=== PATIENT | female | born 1960 | race Caucasian/White ===

== ENCOUNTER 2021-02-06 08:04 | Outpatient (REF) | payer MEDICAID, SELFPAY ==
--- NOTE | ~2021-02-06 | MM_ITS ---
EXAMINATION: MM SCREENING DIGITAL BREAST TOMOSYNTHESIS, BILATERAL CLINICAL INFORMATION: Screening. Asymptomatic. No prior breast imaging. Age 60. Family history breast cancer, maternal grandmother. The lifetime risk of breast cancer based on the Tyrer-Cuzick Model is 8%. COMPARISON: None (current study represents initial baseline exam). TECHNIQUE: Digital breast tomosynthesis is performed in both the craniocaudal and mediolateral oblique views along with computer-aided detection (CAD). Synthesized 2D images are generated from the tomosynthesis. FINDINGS: The breasts are almost entirely fatty (ACR BI-RADS breast composition Category a). Background stromal markings are normal. There are no significant masses, abnormal calcifications, or other abnormalities. No architectural abnormality. The axilla and skin contours are unremarkable. MM/MM tomosynthesis screening BI IMPRESSION: No mammographic evidence of malignancy. ASSESSMENT: BI-RADS 1: Negative RECOMMENDATION: Routine annual mammography screening. This patient's information was entered into a reminder system with a target due date for their next mammogram.
== END 2021-02-06 08:05 | disposition home or self-care (01) ==
LOC: HO.MAMMO 08:04
PROVIDERS: PCP Internal Medicine; Visit Provider Internal Medicine
DX: Z12.31 Encounter for screening mammogram for malignant neoplasm of breast (principal)
CPT/HCPCS: 77063; 77067

== ENCOUNTER 2022-12-17 11:46 | Emergency (ER) | payer MEDICAID, SELFPAY ==
--- NOTE | ~2022-12-17 | CT_ITS ---
EXAMINATION: CT ABDOMEN AND PELVIS WITHOUT CONTRAST CLINICAL INFORMATION: Left flank pain COMPARISON: Previous CT of the abdomen and pelvis October 2015, abdominal ultrasound March 2017 and MRI April 2017 TECHNIQUE: Multidetector volumetric imaging was performed from the superior aspect of the liver through the pubic symphysis. Sagittal and coronal reformatted images were obtained on the technologist's workstation. This CT examination was performed using dose optimization techniques as appropriate, variously including the following: *Automated exposure control *Adjustment of mA and/or kV according to patient size (this includes techniques or standardized protocols for targeted exams where dose is matched to indication/reason for exam; i.e. extremities or head) *Use of iterative reconstruction technique DLP: 602 mGy-cm FINDINGS: LUNG BASES: The visualized lung bases are unremarkable. LIVER, GALLBLADDER, AND BILIARY TREE: Cirrhotic changes. No focal hepatic lesion or biliary ductal dilatation is present. The gallbladder is unremarkable with no evidence of radiopaque gallstones, gallbladder wall thickening, or obvious pericholecystic inflammatory changes. PANCREAS: Unremarkable. SPLEEN: Unremarkable. ADRENAL GLANDS: Unremarkable. KIDNEYS AND URETERS: The kidneys are normal in size, shape, and attenuation. Small bilateral renal stones. 3 cm left renal cyst. No imaging follow-up recommended. No hydronephrosis. No ureteral dilatation or ureteral stone. BLADDER: Unremarkable. GASTROINTESTINAL TRACT: The small and large bowel are unremarkable. The appendix is unremarkable. ABDOMINAL WALL: No significant hernia is appreciated. LYMPH NODES: Normal. VASCULAR: Unremarkable. PELVIC VISCERA: Unremarkable. OSSEOUS STRUCTURES: Degenerative changes of the spine. CT/CT abdomen pelvis wo IV con IMPRESSION: Small bilateral nonobstructing renal stones. Cirrhotic-appearing liver. Fleischner guidelines were followed.
[2022-12-17 12:10] VITALS: BP 146/69; PULSE 52; RESP 16; TEMP 36.3; O2SAT 100; BMI 30.7
--- NOTE | 2022-12-17 12:13 | ED_ITS ---
HPI - General Adult General Chief complaint: Urogenital-Female Stated complaint: ? kidney stones Time Seen by Provider: 12/17/22 14:28 Source: patient and family (Son, Memo) Mode of arrival: ambulatory Limitations: language barrier (Patient's 1st language is Guinean, she does speak some Maori, her sonMemo was used as a tool grinder set up operator gear as per the patient's request) History of Present Illness HPI narrative: 62-year-old female who presents emergency department for evaluation of left flank pain, frequency, urgency, dysuria and hematuria. Patient states she has had symptoms for 2 days . She states that her pain in her left flank feels very similar to when she had a kidney stone but less severe. Patient has had symptoms for 3 days she denied fever, chills. She did have nausea and 2 episodes of vomiting. Related Data Previous Rx's Medication Instructions Recorded cefuroxime axetil 250 mg tablet 250 mg PO Q12H 7 days #14 tabs 12/17/22 ondansetron 4 mg disintegrating 4 mg PO Q6-8H PRN nausea and 12/17/22 tablet vomiting #14 tabs phenazopyridine 200 mg tablet 200 mg PO TID PRN Burning with 12/17/22 (Pyridium) urination 3 days #9 tabs Allergies Allergy/AdvReac Type Severity Reaction Status Date / Time ibuprofen [IBUPROFEN] Allergy Intermediate PANIC Verified 12/17/22 12:10 Review of Systems Review of Systems: Yes all other systems are reviewed and are negative FORMERLY [facility], [facility] Past Medical History FOR[facility]LY [facility] Narrative: Past medical history: Hepatitis C with cirrhosis of the liver-treated in [place]. Hypothyroidism. Kidney stones. Social history: She denies tobacco, alcohol and drug use. Social History Social History Alcohol intake: never Smoked in Last 30 Days: No Use of substances other than those prescribed or required for medical reasons: No Advance Directives: No Advance Directives Information Provided: Yes Physical Exam ED Vital Signs: Vital Signs - 24 hr 12/17/22 12:10 12/17/22 15:34 Temperature 97.4 F 98.1 F Pulse Rate 52 56 Respiratory Rate 16 16 Blood Pressure 146/69 H 116/61 Pulse Oximetry 100 97 Oxygen Delivery Method Room Air Room Air BMI result Body Mass Index 30.7 Vital signs revealed an elevated blood pressure of 146/69 otherwise unremarkable Exam: General: Awake, alert in no distress Head: Normocephalic, atraumatic EENT: PERRL, Lids normal, sclera normal, conjunctiva normal, nose normal , ears normal, throat without erythema or exudates Neck: Supple, no adenopathy, trachea midline and nontender Lung: breath sounds symmetric, no wheezing, rales or rhonchi Chest: symmetric movement, nontender Heart: regular rate and rhythm, normal S1, S2 no murmurs or rubs Abdomen: Patient has moderate suprapubic tenderness, normoactive bowel sounds, no rebound, no voluntary or involuntary guarding Back: no vertebral tenderness, no right-sided CVA tenderness, moderate left- sided CVA tenderness Extremities: no deformities, moves all extremities symmetrically Skin: no rashes, no lesion, normal color and warmth Neuro: Awake, alert, oriented, normal speech, cranial nerves intact, moves all extremities symmetrically Psych: Pleasant, cooperative Course Course Course Narrative: 62-year-old female presents for evaluation of left flank pain. Plan for labs, UA, CT scan the abdomen pelvis to evaluate for obstructive uropathy Medical Decision Making Medical Decision Making MDM Narrative: 62-year-old female who presents emergency department for evaluation of left- sided flank pain, frequency, urgency, dysuria and hematuria x3 days. She had associated nausea and vomiting with no fever or chills. Patient has a history of kidney stones. Vital signs revealed elevated blood pressure otherwise unremarkable. Physical examination did reveal suprapubic tenderness as well as left-sided CVA tenderness. I ordered the following evaluation of the patient CBC, BMP, urinalysis, CT scan abdomen pelvis without IV contrast. 1643: Patient's laboratory revealed mild anemia, urinalysis was positive for blood and rbc's and microscopic revealed greater than [address] W[address] with no bacteria CT scan revealed bilateral renal stones but no ureteral stones. Given the patient's symptoms and her left CVA tenderness, I suspect that she has left pyelonephritis despite not having any bacteria in her urine. Patient was treated with cefuroxime 250 mg orally and Pyridium 200 mg orally. She is given prescriptions for cefuroxime 250 mg q.12 hours for 7 days, Pyridium 200 mg q.6 hours as needed for pain x3 days. She was advised to take ibuprofen 40 mg every 6 hours as needed for pain. She was given printed and verbal instructions and discharged home. Differential Diagnosis Differential Diagnoses: The differential diagnosis associated with the presentation includes Differential diagnosis includes was not limited to kidney stone, ureteral stone, bladder stone, urinary tract infection, pyelonephritis, renal colic, malignancy Admission/Observation Consideration of admission/observation: Escalation of care including admission/observation considered Lab Data MDM Lab Attestation statement: I reviewed the patient's lab results. My interpretation patient's laboratory evaluation is as follows: Mild anemia with an H&H of 11 and 35.4. Normal kidney function. Urinalysis revealed 3+ blood 3+ leukocyte esterase. Microscopic revealed greater than 50 WBCs,, 6-10 RBCs, no bacteria 12/17/22 12:44 12/17/22 12:44 Labs: Lab Results 12/17/22 12/17/22 12/17/22 Range/Units 12:44 12:44 12:44 WBC 7.9 (4.8-10.8) X10*3/uL RBC 3.95 L (4.20-5.50) X10*6/uL Hgb 11.7 L (12.0-16.0) g/dl Hct 35.4 L (37.0-47.0) % MCV 89.6 (80.0-98.0) fL MCH 29.6 (27.0-33.0) pg MCHC 33.1 (31.0-35.0) g/dl RDW 12.4 (11.0-16.0) % Plt Count 152 L (160-400) X10*3/uL MPV 10.1 (9.4-12.3) fL Immature Gran % (Auto) 0.4 (0.0-0.4) % Neut % (Auto) 66.6 (45-73) % Lymph % (Auto) 21.0 (20-40) % [place] % (Auto) 9.3 (2-11) % Eos % (Auto) 2.3 (0-4) % Baso % (Auto) 0.4 (0-2) % Lymph # (Auto) 1.7 (1.2-4.9) X10*3/uL [place] # (Auto) 0.7 (0.1-1.2) X10*3/uL Eos # (Auto) 0.2 (0.0-0.4) X10*3/uL Baso # (Auto) 0.0 (0.0-0.2) X10*3/uL Abs Immat Gran (auto) 0.03 (0.00-0.03) X10*3/uL Absolute Neuts (auto) 5.2 (2.0-8.3) x10*3/uL Absolute Nucleated RBC 0.000 (0.0-0.012) X10*3/uL Nucleated RBC % (auto) 0.0 (0.0-0.2) /100WBC Sodium 142 (135-145) mmol/L Potassium 4.2 (3.3-5.1) mmol/L Chloride 107 (96-108) mmol/L Carbon Dioxide 27 (22-29) mmol/L Anion Gap 12 (12-20) BUN 11 (9-16) mg/dL Creatinine 0.62 (0.5-1.4) mg/dL Estim Creat Clear Calc 106.7 Estimated GFR > 60 Random Glucose 92 (60-115) mg/dL Calcium 9.5 (8.4-10.2) mg/dL Urine Color Yellow Urine Appearance Clear Urine pH 7.0 (5.0-9.0) Ur Specific [place] <= 1.005 (1.005-1.025) Urine Protein 30 (1+) H (Neg-Trace) mg/dL Urine Glucose (UA) Negative (Negative) mg/dL Urine Ketones Negative (Negative) mg/dL Urine Blood Large (3+) H (Negative) Urine Nitrite Negative (Negative) Ur Leukocyte Esterase Large (3+) H (Negative) Urine RBC 6-10 H (0-2) /HPF Urine WBC >50 H (0-5) /HPF Ur Squamous Epith Cells 0-2 (0-2) /HPF Urine Bacteria None Seen (None Seen) Hyaline Casts 0-2 (0-2) /LPF Radiology Impression Discussion of test interpretation with radiology: I have reviewed the radiologist's reading. Radiologist Impression: CT abdomen pelvis wo IV con IMPRESSION: Small bilateral nonobstructing renal stones. Cirrhotic-appearing liver. Fleischner guidelines were followed. Dictated By:Vivian Toledo MD Discharge Plan Discharge Clinical Impression: Pyelonephritis of left kidney Hematuria Qualifiers: Hematuria type: gross Qualified Code(s): R31.0 - Gross hematuria Patient Disposition: Home, Self-Care Instructions: Kidney Infection (ED) Additional Instructions: Your blood work was unremarkable. Your CT scan of the abdomen pelvis without IV contrast revealed small kidney stone in both kidneys by no stones in the ureters (the tube that connects the kidneys to the bladder). On your exam you did have pain over your left kidney. Your urine is positive for red blood cells and white blood cell suggesting that you have a urine infection of the left kidney. Take cefuroxime 250 mg pills 1 pill every 12 hours for 12 days. Take Pyridium (phenazopyridine) 200 mg every 6 hours as needed for pain with urinating. Take ibuprofen 200 mg pills, 2 pills every 6 hours as needed for pain or fever. Take Zofran ODT 4 mg pills, 1 pill dissolved in your mouth every 8 hours as needed for nausea and vomiting. Follow-up with your doctor in 2 days. Please return to the emergency department if your symptoms get worse or if you develop any symptoms that are concerning to you. Prescriptions: New phenazopyridine [Pyridium] 200 mg tablet 200 mg PO TID PRN (Reason: Burning with urination) 3 Days Qty: 9 0RF cefuroxime axetil 250 mg tablet 250 mg PO Q12H 7 Days Qty: 14 0RF ondansetron 4 mg tablet,disintegrating 4 mg PO Q6-8H PRN (Reason: nausea and vomiting) Qty: 14 0RF
[2022-12-17 12:51] LABS: MANUAL DIFF FLAG NO
[2022-12-17 12:52] LABS: Basophils Percent Auto 0.4 % (0-2); Eosinophils Absolute Auto 0.2 X10*3/uL (0.0-0.4); Eosinophils Percent Auto 2.3 % (0-4); Hematocrit 35.4 % (37.0-47.0); Hemoglobin 11.7 g/dl (12.0-16.0); Imm Gran Abs Auto 0.03 X10*3/uL (0.00-0.03); Imm Gran Pct Auto 0.4 % (0.0-0.4); Lymphocytes Absolute Auto 1.7 X10*3/uL (1.2-4.9); Mean Corpuscular HGB Conc 33.1 g/dl (31.0-35.0); Mean Corpuscular Hemoglobin 29.6 pg (27.0-33.0); Mean Corpuscular Volume 89.6 fL (80.0-98.0); Mean Platelet Volume 10.1 fL (9.4-12.3); Monocytes Absolute Auto 0.7 X10*3/uL (0.1-1.2); Monocytes Percent Auto 9.3 % (2-11); Neutrophils Absolute Auto 5.2 x10*3/uL (2.0-8.3); Neutrophils Percent Auto 66.6 % (45-73); Platelet Count 152 X10*3/uL (160-400); Red Blood Count 3.95 X10*6/uL (4.20-5.50); Red Cell Distribution Width 12.4 % (11.0-16.0); White Blood Count 7.9 X10*3/uL (4.8-10.8)
[2022-12-17 13:00] LABS: Appearance Urine Clear; Color Urine Yellow; Glucose Urine UA Negative (Negative); Leukocyte Esterase Urine Large (3+) (Negative); Nitrite Urine Negative (Negative); Specific Gravity - Urine <= 1.005 (1.005-1.025); UMIC TRIGGER UACC YES; Urine Blood Large (3+) (Negative); Urine Ketones Negative (Negative); Urine Protein 30 (1+) mg/dL (Neg-Trace)
[2022-12-17 13:02] LABS: Bacteria Urine None Seen (None Seen); Hyaline Casts Urine 0-2 /LPF (0-2); Squamous Epithelial Cell Urine 0-2 /HPF (0-2); UACC Culture Trigger YES; WBC Urine >50 /HPF (0-5)
[2022-12-17 13:09] LABS: Anion Gap 12 (12-20); Blood Urea Nitrogen 11 mg/dL (9-16); Calcium 9.5 mg/dL (8.4-10.2); Carbon Dioxide 27 mmol/L (22-29); Chloride 107 mmol/L (96-108); Creatinine Clr Calc Pharmacy 106.7; Estimated Glomerular Filt Rate > 60; Glucose Random 92 mg/dL (60-115); Potassium 4.2 mmol/L (3.3-5.1); Sodium 142 mmol/L (135-145)
[2022-12-17 15:34] VITALS: BP 116/61; PULSE 56; RESP 16; TEMP 36.7; O2SAT 97
--- NOTE | 2022-12-17 15:38 | PC.NURSE ---
pt a&ox3. respirations even and unlabored. pt reporting blood in urine since yesterday morning. pt has hx of stones. pt reporting left sided flank pain and bladder fullness. pt denies n/v and chest pain. vss.
[2022-12-17] MEDS: Phenazopyridine HCL 200 MG TABLET PO (16:38)
--- NOTE | 2022-12-17 16:41 | PC.NURSE ---
pt medicated per MAR.
== END 2022-12-17 16:44 | disposition home or self-care (01) ==
PROVIDERS: Physician Assistant; Emergency Provider Emergency Medicine Emergency Medical Services
DX: N12 Tubulo-interstitial nephritis, not specified as acute or chronic (principal); R31.0 Gross hematuria; R10.9 Unspecified abdominal pain; R30.0 Dysuria; R35.0 Frequency of micturition
CPT/HCPCS: 36415; 74176; 80048; 81001; 85025; 87086; 99284

== ENCOUNTER 2023-07-18 09:30 | Outpatient (REF) | payer MEDICAID, SELFPAY ==
[2023-07-18 14:13] LABS: MANUAL DIFF FLAG NO
[2023-07-18 14:14] LABS: Basophils Percent Auto 0.7 % (0-2); Eosinophils Absolute Auto 0.2 X10*3/uL (0.0-0.4); Eosinophils Percent Auto 3.7 % (0-4); Hematocrit 38.2 % (37.0-47.0); Hemoglobin 12.7 g/dl (12.0-16.0); Imm Gran Abs Auto 0.01 X10*3/uL (0.00-0.03); Imm Gran Pct Auto 0.2 % (0.0-0.4); Lymphocytes Absolute Auto 1.4 X10*3/uL (1.2-4.9); Lymphocytes Percent Auto 32.4 % (20-40); Mean Corpuscular HGB Conc 33.2 g/dl (31.0-35.0); Mean Corpuscular Hemoglobin 30.4 pg (27.0-33.0); Mean Corpuscular Volume 91.4 fL (80.0-98.0); Monocytes Absolute Auto 0.5 X10*3/uL (0.1-1.2); Monocytes Percent Auto 10.3 % (2-11); Neutrophils Absolute Auto 2.3 x10*3/uL (2.0-8.3); Neutrophils Percent Auto 52.7 % (45-73); Platelet Count 151 X10*3/uL (160-400); Red Blood Count 4.18 X10*6/uL (4.20-5.50); White Blood Count 4.4 X10*3/uL (4.8-10.8)
[2023-07-18 14:59] LABS: Alanine Aminotransferase 19 U/L (0-31); Albumin Level 4.4 g/dL (3.5-5.0); Alkaline Phosphatase 59 U/L (39-117); Anion Gap 11 (12-20); Aspartate Amino Transferase 21 U/L (5-31); Bilirubin Total 0.5 mg/dL (0.0-1.0); Blood Urea Nitrogen 19 mg/dL (9-16); Calcium 9.5 mg/dL (8.4-10.2); Carbon Dioxide 29 mmol/L (22-29); Chloride 106 mmol/L (96-108); Cholesterol 164 mg/dL (<200); Estimated Glomerular Filt Rate > 60; Glucose Random 76 mg/dL (60-115); HDL Cholesterol 71 mg/dL (>40); LDL Cholesterol Calculated 79 mg/dL (<100); Potassium 4.6 mmol/L (3.3-5.1); Sodium 141 mmol/L (135-145); Total Protein 7.9 g/dL (6.5-8.0); Triglycerides 74 mg/dL (<150)
[2023-07-18 15:45] LABS: Free T4 (Free Thyroxine) 1.62 ng/dL (0.71-1.85)
== END 2023-07-18 09:31 | disposition home or self-care (01) ==
LOC: HO.CHCLDS 09:30
PROVIDERS: Visit Provider Internal Medicine
DX: E03.9 Hypothyroidism, unspecified (principal); I10 Essential (primary) hypertension
CPT/HCPCS: 36415; 80053; 80061; 84439; 84443; 85025

== ENCOUNTER 2024-02-24 10:12 | Outpatient (REF) | payer MEDICAID, SELFPAY ==
[2024-02-24 11:55] LABS: Alanine Aminotransferase 20 U/L (0-31); Albumin Level 4.2 g/dL (3.5-5.0); Alkaline Phosphatase 58 U/L (39-117); Anion Gap 11 (12-20); Aspartate Amino Transferase 22 U/L (5-31); Bilirubin Total 0.8 mg/dL (0.0-1.0); Blood Urea Nitrogen 12 mg/dL (9-16); Calcium 9.2 mg/dL (8.4-10.2); Carbon Dioxide 28 mmol/L (22-29); Chloride 104 mmol/L (96-108); Cholesterol 141 mg/dL (<200); Estimated Glomerular Filt Rate > 60; Glucose Random 100 mg/dL (60-115); HDL Cholesterol 66 mg/dL (>40); LDL Cholesterol Calculated 65 mg/dL (<100); Potassium 4.4 mmol/L (3.3-5.1); Sodium 139 mmol/L (135-145); Total Protein 7.4 g/dL (6.5-8.0); Triglycerides 54 mg/dL (<150)
[2024-02-24 12:13] LABS: TSH reflex Free T4 1.54 uIU/mL (0.32-4.0); Vitamin D 25-OH Total 66.8 ng/mL (>30)
== END 2024-02-24 10:13 | disposition home or self-care (01) ==
LOC: HO.LAB 10:12
PROVIDERS: PCP Internal Medicine; Visit Provider Internal Medicine
DX: I10 Essential (primary) hypertension (principal); E55.9 Vitamin D deficiency, unspecified
CPT/HCPCS: 36415; 80053; 80061; 82306; 84443

== ENCOUNTER 2024-11-14 09:31 | Outpatient (REF) | payer MEDICAID, SELFPAY ==
--- OUTSIDE RECORDS SUMMARY | 2024-11-14 09:59 | XMS_ITS | Encounter Summary ---
Author Organization [employer] Address [address] [facility] [address] [place] [address] Care Team Providers Care Cooler Man Name Role Phone Nithin Duckworth MD Primary Care Prov ider Reason for Visit * Reason Comments Med Refill Encounter Details Date Type Department Care Team (Late st Contact Info) Description 11/14/2024 Refill [facility] [address] [place] [address] Nithin Duckworth MD [address] [place], [place] [phone] Social History Tobacco Use Types Packs/Day Years Used Date Smoking Tobacco: Never Smokeless Tobacco: Never Alcohol Use Standard Drinks/Week Comments Never 0 (1 standard drink = 0.6 oz pur e alcohol) Depression Answer Date Recorded Patient Health Questionnaire-9 Score 0 11/14/2024 Patient Health Questionnaire-9 Score 0 11/14/2024 Last PHQ-9: Questionnaire Data Not on file 0 11/14/2024 Housing Stability Answer Date Recorded What is your housing situation today? I have chrisitna pate 07/18/[address] you li ve. Do you have problems with any of the following? None of the above 07/18/2023 Food Insecurity Answer Date Recorded Within the past 12 months, y ou worried that your food would run out before you got money to buy more: Never True 07/18/2023 Within the past 12 months,th e food you bought just didn't last and you didn't have enough money to get more: Never True 04/2024 Transportation Answer Date Recorded In the past 12 months, has l ack of transportation kept you from medical appts, meetings, work or from getting things needed for daily living? No 07/18/2023 Utilities Answer Date Recorded In the past 12 months, has t he electric, gas, oil or water company threatened to shut off services in your home? No 07/18/2023 Depression Answer Date Recorded Patient Health Questionnaire-2 Score 0 11/14/2024 Comments Unknown Sex and Gender Information Value Date Recorded Sex Assigned at Female 03/07/2022 10:22 AM EDT Legal Sex Female 10:22 AM EDT Gender Identity Female 03/07/2022 10:22 AM EDT Sexual Orientation Straight 03/07/2022 10 :22 AM EDT documented as of this encounter Functional Status * Over the past 2 weeks, how often have you been bothered by any of the following problems? Question Answer Date of Assessment Author Patient Health Questionnaire-2 Score 0 11/05 8:58 AM Marcela Sandoval MA * Little interest or pleasure in doing things Answer Date of Assessment Author Not at all 11/14/2024 8:58 AM Jennifer Sandoval MA * Feeling down, depressed, or hopeless Answer Date of Assessment Author Not at all 11/14/2024 8:58 AM Jennifer Sandoval MA * Trouble falling or staying asleep, or sleeping too much Answer Date of Assessment Author Not at all 11/14/2024 8:58 AM Jennifer Sandoval MA * Feeling tired or having little energy Answer Date of Assessment Author Not at all 11/14/2024 8:58 AM Jennifer Sandoval MA * Poor appetite or overeating Answer Date of Assessment Author Not at all 11/14/2024 8:58 AM Jennifer Sandoval MA * Feeling bad about yourself - or that you are a failure or have let yourself or your family down Answer Date of Assessment Author Not at all 11/14/2024 8:58 AM Jennifer Sandoval MA * Trouble concentrating on things, such as reading the newspaper or watching television Answer Date of Assessment Author Not at all 11/14/2024 8:58 AM Jennifer Sandoval MA * Moving or speaking so slowly that other people could have noticed? Or the opposite - being so fidgety or restless that you have been moving around a lot more than usual. Answer Date of Assessment Author Not at all 11/14/2024 8:58 AM EDT Jennifer Grace MA * Thoughts that you would be better off or hurting yourself in some way Answer Date of Assessment Author Not at all 11/14/2024 8:58 AM EDT Jennifer Grace MA * Patient Health Questionnaire-9 Score Answer Date of Assessment Author 0 11/14/2024 8:58 AM EDT Jennifer Grace MA documented as of this encounter Plan of Treatment Not on file documented as of this encounter Visit Diagnoses Not on filedocumented in this encounter Additional Health Concerns Assessment Noted Time PHQ-9 Depression Total Score: 0 11/15/19 25 8:58 AM EDT documented as of this encounter Care Teams Cooler Man Relationship Specialty Start Date End Date Nithin Duckworth MD [address] [place] [id number] PCP - General Internal Medicine 09/10/19 documented as of this encounter
[2024-11-14 15:53] LABS: MANUAL DIFF FLAG NO
[2024-11-14 16:22] LABS: Alanine Aminotransferase 22 U/L (0-31); Albumin Level 4.2 g/dL (3.5-5.0); Alkaline Phosphatase 53 U/L (39-117); Anion Gap 10 (12-20); Aspartate Amino Transferase 31 U/L (5-31); Blood Urea Nitrogen 13 mg/dL (9-16); Calcium 9.2 mg/dL (8.4-10.2); Carbon Dioxide 28 mmol/L (22-29); Chloride 105 mmol/L (96-108); Cholesterol 136 mg/dL (<200); Estimated Glomerular Filt Rate > 60; HDL Cholesterol 60 mg/dL (>40); Potassium 4.4 mmol/L (3.3-5.1); Sodium 139 mmol/L (135-145); Total Protein 7.1 g/dL (6.5-8.0); Triglycerides 70 mg/dL (<150)
[2024-11-14 16:26] LABS: Hematocrit 35.6 % (37.0-47.0); Hemoglobin 11.9 g/dl (12.0-16.0); Imm Gran Abs Auto 0.01 X10*3/uL (0.00-0.03); Imm Gran Pct Auto 0.2 % (0.0-0.4); Lymphocytes Absolute Auto 1.4 X10*3/uL (1.2-4.9); Mean Corpuscular HGB Conc 33.4 g/dl (31.0-35.0); Mean Corpuscular Hemoglobin 30.3 pg (27.0-33.0); Mean Corpuscular Volume 90.6 fL (80.0-98.0); NRBC Abs Auto 0.000 X10*3/uL (0.0-0.012); NRBC Pct Auto 0.0 /100WBC (0.0-0.2); Platelet Count 153 X10*3/uL (160-400); Red Blood Count 3.93 X10*6/uL (4.20-5.50); White Blood Count 4.4 X10*3/uL (4.8-10.8)
[2024-11-14 17:48] LABS: Free T4 (Free Thyroxine) 1.37 ng/dL (0.71-1.85)
== END 2024-11-14 09:32 | disposition home or self-care (01) ==
LOC: HO.CHCLDS 09:31
PROVIDERS: Visit Provider Internal Medicine
DX: I10 Essential (primary) hypertension (principal)
CPT/HCPCS: 36415; 80053; 80061; 82306; 84439; 84443; 85025

== ENCOUNTER → 2025-01-11 10:30 | Outpatient (BNV) | payer MEDICAID, SELFPAY | PROVIDERS: PCP Internal Medicine; Visit Provider Internal Medicine | DX: Z12.31 Encounter for screening mammogram for malignant neoplasm of breast (principal) | CPT/HCPCS: 77063; 77067 ==

== ENCOUNTER 2025-01-11 10:35 | Outpatient (REF) | payer MEDICAID, SELFPAY ==
--- NOTE | ~2025-01-11 | MM_ITS ---
EXAMINATION: MM SCREENING DIGITAL BREAST TOMOSYNTHESIS, BILATERAL CLINICAL INFORMATION: Screening. Asymptomatic. COMPARISON: Mammography: Comparison is made with available priors TECHNIQUE: Digital breast mammography with tomosynthesis is performed in both the craniocaudal and mediolateral oblique views along with computer-aided detection (CAD). FINDINGS: There are scattered areas of fibroglandular density (ACR BI-RADS breast composition Category b). There are no significant masses, abnormal calcifications, or other abnormalities. MM/MM tomosynthesis screening BI IMPRESSION: No mammographic evidence of malignancy. ASSESSMENT: BI-RADS BI-RADS 1 - Negative RECOMMENDATION: Routine annual mammography screening. 1 year F/U This examination should not preclude the clinical evaluation of a suspicious palpable abnormality. This patient's information was entered into a reminder system with a target due date for their next mammogram. Electronically signed by: Kia Bailey DO 01/14/2025 04:40 PM EDT
--- OUTSIDE RECORDS SUMMARY | 2025-01-11 10:39 | XMS_ITS | Encounter Summary ---
Author Organization [employer] Address [address] [facility] [address] [place] [address] Care Team Providers Care Stuffed Casing Tier Name Role Phone Nithin Duckworth MD Primary Care Prov ider Encounter Details Date Type Department Care Team (Late st Contact Info) Description 06/01/2022 Orders Only [facility] [address] [place] [address] Nithin Duckworth MD [address] [place], [place] [phone] Primary hypertension (Primary Dx) Social History Tobacco Use Types Packs/Day Years Used Date Smoking Tobacco: Never Assessed Depression Answer Date Recorded Patient Health Questionnaire-9 Score 0 05/27/2022 Depression Answer Date Recorded Patient Health Questionnaire-2 Score 0 05/27/2022 Comments Unknown Sex and Gender Information Value Date Recorded Sex Assigned at Female 03/07/2022 10:22 AM EDT Legal Sex Female 10:22 AM EDT Gender Identity Female 03/07/2022 10:22 AM EDT Sexual Orientation Straight 03/07/2022 10 :22 AM EDT documented as of this encounter Plan of Treatment Scheduled Orders Name Type Priority Associated Diagnoses Orde r Schedule CBC auto differential Lab Routine Primary hypertension Expected: 06/01/2022 (Approximate), Expires: 06/01/2023 Basic Metabolic Panel Lab Routine Primary hypertension Expected: 06/01/2022 (Approximate), Expires: 06/01/2023 Electrolyte Panel Lab Routine Primary hypertension Expected: 06/01/2022 (Approximate), Expires: 06/01/2023 Hepatic Function Panel Lab Routine Primary hypertension Expected: 07/02/2022 (Approximate), Expires: 06/01/2023 Lipid Panel, Standard Lab Routine Primary hypertension Expected: 06/01/2022 (Approximate), Expires: 06/01/2023 Hepatitis C Antibody with Reflex to HCV, RNA, Quantitative, Real-Time PCR Lab Routine Primary hypertension Expected: 06/01/2022 (Approximate), Expires: 06/01/2023 HIV-1 RNA, Quantitative, Real-Time PCR with Reflex to Genotype (RTI, PI, Integrase) Lab Routine Primary hypertension Expected: 06/01/2022 (Approximate), Expires: 06/01/2023 TSH W/Reflex to FT4 Lab Routine Primary hypertension Expected: 06/01/2022 (Approximate), Expires: 06/01/2023 Hemoglobin A1c with Calculated Mean Plasma Glucose (MPG) Lab Routine Primary hypertension Expected: 06/01/2022 (Approximate), Expires: 06/01/2023 documented as of this encounter Visit Diagnoses Diagnosis Primary hypertension- Primary Unspecified essential hypertension documented in this encounter Additional Health Concerns Assessment Noted Time PHQ-9 Depression Total Score: 0 05/27/19 23 10:27 AM EST documented as of this encounter Care Teams Stuffed Casing Tier Relationship Specialty Start Date End Date Nithin Duckworth MD [address] [place] [id number] PCP - General Internal Medicine 09/10/19 documented as of this encounter
--- OUTSIDE RECORDS SUMMARY | 2025-01-11 10:39 | XMS_ITS | Clinical Summary ---
Author Organization [employer] Address [address] [facility] 7t [place] [address] Care Team Providers Care Loans Officer Name Role Phone Nithin Duckworth MD Primary Care Prov ider Allergies Active Allergy Reactions Criticality Noted Date Comments Iodine High 04/20/2012 Other reaction(s): panic attack Medications aspirin 81 MG EC tablet Take 1 tablet by mouth at bed time. 1 Active cromolyn (Opticrom) 4 % ophthalmic solution Administer 1 drop into affected eye(s). 8 Active dextran 70-hypromellose (artificial tears) 0.1-0.3 % ophthalmic solution 1-2 drops twice a day as needed 1 Active ergocalciferol (Vitamin D-2) 1.25 MG (72711 UT) capsule Take 1 capsule by mouth once a week. 2 Active ketotifen (Zaditor) 0.025 % ophthalmic solution Administer 1 drop into affected eye(s) every 12 (twelve) hours. 2 Active loratadine (Claritin) 10 MG tablet Take 1 tablet by mouth at bed time. 2 Active mirtazapine (Remeron) 30 MG tablet Take 30 mg by mouth. 8 Active Na Sulfate-K Sulfate-Mg Sulf 17.5-3.13-1.6 GM/177ML solution Take 177 mL by mouth. 9 Active levothyroxine (Synthroid, Levoxyl) 137 MCG tablet TAKE 1 TABLET BY MOUTH EVERY DAY BEFORE BREAKFAST 90 tablet 5 Active chlorthalidone (Hygroton) 25 MG tablet Take 1 tablet (25 mg) by mouth in the morning. 90 tablet 3 5 Active losartan (Cozaar) 100 MG tabletIndications :Primary hypertension Take 1 tablet (100 mg) by mouth Once per day. 90 tablet 3 5 11/15/19 26 Active amLODIPine (Norvasc) 10 MG tablet Take 1 tablet (10 mg) by mouth in the morning. 90 tablet 3 5 Active traZODone (Desyrel) 50 MG tablet Take 1 tablet (50 mg) by mouth at bedtime. 90 tablet 3 5 Active Diclofenac Sodium (Voltaren Arthritis Pain) 1 % gel Apply 2 g topically 2 times daily. 350 g 3 5 Active Active Problems Problem Noted Date Diagnosed Date Screening for colon cancer 07/18/2023 Assessment & Plan (10/31/2023 7:24 PM EDT): Will send cologuard risk vs benefits discussed Screening mammogram for breast cancer 07/18/2023 Assessment & Plan (10/31/2023 7:26 PM EDT): Will send order for mammogram Chronic left shoulder pain 06/24/2022 Assessment & Plan (06/24/2022 10:06 AM EST): Patient completed PT previously, no improvement in symptoms, will refer to ortho for evaluation Bilateral hearing loss 04/18/2022 Osteoarthritis of multiple joints 04/18/2022 Cirrhosis of liver 11/01/2021 Assessment & Plan (09/07/2022 11:47 AM EDT): Told to follow up with Gi, currently asymptomatic Mood disorder 02/13/2017 Seasonal allergic rhinitis 02/13/2017 Vasculitis 02/13/2017 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 Hepatitis C 05/03/2012 Hypothyroidism 05/03/2012 Assessment & Plan (11/14/2024 9:29 AM EDT): Clinically euthyroid, will order new tsh level for guidance of therapy Assessment & Plan (11/16/2023 5:45 PM EDT): Clinically euthyroid, new tsh ordered for guidance Assessment & Plan (09/07/2022 11:48 AM EDT): Lab order sent she is on 137mcg, will call with results Assessment & Plan (04/25/2022 2:03 PM EST): On levothyroxine 137mcg, will order new labs for guidance of therapy Impaired fasting glucose 05/03/2012 Hypertension 04/20/2012 Assessment & Plan (11/14/2024 9:29 AM EDT): Elevated, refer that for the past month has been increasing, she is on chlorthalidone 25mg, losartan 100mg and amlodipine 5mg will increase to 10mg and will refer to nephrology Assessment & Plan (02/15/2024 2:41 PM EDT): Controlled, continue current therapy, keep bp log, target <140/90, follow up in 3 months Assessment & Plan (11/16/2023 5:44 PM EDT): Controlled with current regimen, no changes will be made, follow up in 4 months Assessment & Plan (10/31/2023 7:29 PM EDT): Controlled on losartan, amlodipine 10mg, which she is not tolerating, will decrease it to 5mg and add chlorthalidone, continue low sodium diet and exercise as tolerated, follow up in 4 months Assessment & Plan (09/07/2022 11:47 AM EDT): Controlled, currently on losartan 100mg and amlodipine 10mg, reinforced low sodium diet and exercise as tolerated, keep bp log, target <140/90, follow up in 3 months Assessment & Plan (06/24/2022 10:05 AM EST): Will increase losartan to 100mg daily, continue amlodipine 10mg, watch for bp <100/60 or above 140/90, will follow up in 1 month Assessment & Plan (05/27/2022 11:32 AM EST): Controlled, reinforced low sodium diet and exercise as tolerated, no changes will be made, will follow up in 3 months. Assessment & Plan (04/25/2022 2:02 PM EST): Improved with adittion of losartan but not at target, will increase dose to 50mg, encouraged patient to continue low sodium diet and exercise as tolerated and keep bp log, will follow up in 1 month with new labs Encounters Date Type Department Care Team Description 11/18/2024 Results Follow-Up [facility] [address] [place] [address] Nithin Duckworth MD CBC auto differential, Comprehensive Metabolic Panel, Lipid Panel, Standard, Additional followed-up results: 2 11/15/2024 Orders Only [facility] [address] [place] [address] Nithin Duckworth MD 11/15/2024 Telephone [facility] [address] [place] [address] Nithin Duckworth MD requesting call back 11/14/2024 8:45 AM EDT Office Visit [facility] [address] [place] [address] Nithin Duckworth MD Screening for colon cancer (Primary Dx); Primary hypertension; Encounter for screening mammogram for malignant neoplasm of breast; Acquired hypothyroidism; Dietary counseling; Exercise counseling; Other cirrhosis of liver (CMS/HCC) 11/14/2024 Orders Only [facility] [address] [place] [address] Nithin Duckworth MD 11/14/2024 Travel 11/14/2024 Refill [facility] [address] [place], [place] [phone] Nithin Duckworth MD from Last 3 Months Social History Tobacco Use Types Packs/Day Years Used Date Smoking Tobacco: Never Smokeless Tobacco: Never Tobacco Cessation:Counseling Given: Not Answered Alcohol Use Standard Drinks/Week Comments Never 0 (1 standard drink = 0.6 oz pur e alcohol) Depression Answer Date Recorded Patient Health Questionnaire-9 Score 0 11/14/2024 Patient Health Questionnaire-9 Score 0 11/14/2024 Last PHQ-9: Questionnaire Data Not on file 0 11/14/2024 Housing Stability Answer Date Recorded What is your housing situation today? I have christina pate 07/18/[address] you [...] Orientation Straight 03/07/2022 10 :22 AM EDT Last Filed Vital Signs Vital Sign Reading Time Taken Comments Blood Pressure 160/82 11/14/2024 8:55 AM EDT Pulse 60 11/14/2024 8:55 AM EDT Temperature 36.8 C (98.2 F) 11/14/2024 8:55 AM EDT Respiratory Rate 16 11/14/2024 8:55 AM EDT Oxygen Saturation - - Inhaled Oxygen Concentration - - Weight 101 kg (222 lb) 11/14/2024 8:55 AM EDT Height 157.5 cm (5' 2 ) 11/14/2024 8:55 AM EDT Body Mass Index 40.6 11/14/2024 8:55 AM EDT Plan of Treatment Health Maintenance Due Date Last Done Comments CT Colonography 1962 Colonoscopy 1962 Colorectal Cancer Screening 1962 FIT DNA/Cologuard 1962 FIT 1962 FOBT 1962 Sigmoidoscopy 1962 Disability Screening 1962 Alcohol/Substance Use Screening 1974 DTaP/Tdap/Td Vaccines (1 - Tdap) 1981 Hepatitis A Vaccines (1 of 2 - Risk 2-dose series) 1981 Pneumococcal Vaccine: 50+ Years (1 of 2 - PCV) 1981 Pap Smear 09/21/1983 Cervical Cancer Screening 1992 HPV/Cotest 1992 Zoster Vaccines (1 of 2) 2012 Hepatitis B Vaccines (1 of 3 - Risk 3-dose series) 2022 RSV Patients and Patients Aged 60 years or older (1 - Risk 60-74 years 1-dose series) 2022 Mammogram 02/06/2023 02/06/2021, 02/06/2021 SDOH Screening 07/17/2024 07/18/2023 Tobacco Screening 11/15/2024 11/16/2023 COVID-19 Vaccine ( season) 2025 Influenza Vaccine (#1) 2025 Depression Screening 11/14/2025 11/14/2024, 11/15/19 25 Lipid Panel 11/14/2029 11/14/2024, 02/05, 07/18/2023, Additional history exists HIV Screening Completed 09/16/2022 HIB Vaccines Aged Out No longer eligi ble based on patient's age to complete this topic HPV Vaccines Aged Out No longer eligi ble based on patient's age to complete this topic IPV Vaccines Aged Out No longer eligi ble based on patient's age to complete this topic Meningococcal B Vaccine Aged Out No l onger eligible based on patient's age to complete this topic Meningococcal Vaccine Aged Out No concepcion corwin eligible based on patient's age to complete this topic RSV under 20 months Aged Out No longe r eligible based on patient's age to complete this topic Rotavirus Vaccines Aged Out No longer eligible based on patient's age to complete this topic Procedures Procedure Name Priority Date/Time Associated Diagnosis Comments CBC WITH AUTO DIFFERENTIAL Routine 11/14/2024 9:52 AM EDT Primary hypertension T4, FREE Routine 11/14/2024 9:32 AM EDT VITAMIN D,25-OH,TOTAL,IA Routine 11/14/2024 9:32 AM EDT Primary hypertension TSH W/REFLEX TO FT4 Routine 11/14/2024 9 :32 AM EDT Primary hypertension LIPID PANEL, STANDARD Routine 11/14/2024 9:32 AM EDT Primary hypertension COMPREHENSIVE METABOLIC PANEL Routine 11/14/2024 9:32 AM EDT Primary hypertension HIV 1 RNA, QN PCR W/RFL TRICIA (RTI,PI,INTEGRASE) Routine 09/16/2022 3:45 PM EDT Primary hypertension Other cirrhosis of liver (CMS/HCC) Acquired hypothyroidism HM MAMMOGRAPHY Routine 02/06/2021 from Last 3 Months or Most Recently Relevant to Health Maintenance Results * (ABNORMAL) CBC auto differential (11/14/2024 9:52 AM EDT) White Blood Count 4.4(L) 4.8 - 10.8 X10*3/uL [facility] Red Blood Count 3.93(L) 4.20 - 5.50 X10*6/uL [facility] Hemoglobin 11.9(L) 12.0 - 16.0 g/dl [facility] Hematocrit 35.6(L) 37.0 - 47.0 % [facility] Mean Corpuscular Volume 90.6 80.0 - 98.0 fL [facility] Mean Corpuscular Hemoglobin 30.3 27.0 - 33.0 pg [facility] Mean Corpuscular HGB Conc 33.4 31.0 - 35.0 g/dl [facility] Red Cell Distribution Width 12.8 11.0 - 16.0 % [facility] Platelet Count 153(L) 160 - 400 X10*3/uL [facility] Mean Platelet Volume 10.8 9.4 - 12.3 fL [facility] Neutrophils Percent Auto 53.1 45 - 73 % [facility] Imm Gran Pct Auto 0.2 0.0 - 0.4 % [facility] Lymphocytes Percent Auto 31.1 20 - 40 % [facility] Monocytes Percent Auto 11.2(H) 2 - 11 % [facility] Eosinophils Percent Auto 3.7 0 - 4 % [facility] Basophils Percent Auto 0.7 0 - 2 % [facility] NRBC Pct Auto 0.0 0.0 - 0.2 /100WBC [facility] Neutrophils Absolute Auto 2.3 2.0 - 8.3 x10*3/uL [facility] Imm Gran Abs Auto 0.01 0.00 - 0.03 X10*3/uL [facility] Lymphocytes Absolute Auto 1.4 1.2 - 4.9 X10*3/uL [facility] Monocytes Absolute Auto 0.5 0.1 - 1.2 X10*3/uL [facility] Eosinophils Absolute Auto 0.2 0.0 - 0.4 X10*3/uL [facility] Basophils Absolute Auto 0.0 0.0 - 0.2 X10*3/uL [facility] NRBC Abs Auto 0.000 0.0 - 0.012 X10*3/uL [facility] Blood Venous blood specimen / Unknown 11/14/2024 9:52 AM EDT 11/14/2024 3:46 PM EDT us Nithin Roberson MD LAB BLOOD ORDERABL ES Final Result [facility] [address] [place] [phone] * Vitamin D, 25-Hydroxy, Total, Immunoassay (11/14/2024 9:32 AM EDT) Vitamin D 25-OH Total 56.1 >30 ng/mL [facility] Comment: Health Based Reference Values*< 20 ng/mL [id number] ng/mL Insufficient> 30 ng/mL Sufficient*Chay HANSON. N Engl J Med. 2007;357:266-280There is no well-established upper level of normal vitamin Dlevels. Some laboratories use 50 ng/mL as an upper limit ofnormal. However, toxicity is patient-dependent and may occurat any level. Careful correlation with the patient'spresentation is necessary and, if there is concern forvitamin D toxicity, treatment should be consideredirrespective of the serum level.Care must be taken in interpreting Vitamin D results fromdifferent laboratories and methodologies. Published datademonstrated that results from patients undergoinghemodialysis may show a negative bias when tested withvarious automated 25-OH vitamin D assays when compared toLC-MS/MS.When testing samples from patients whose predominant form ofVitamin D is Vitamin D2, such as patients receiving VitaminD2 supplementation, results that are subtherapeutic shouldbe confirmed with another method such as LC-MS/MS. Blood Venous blood specimen / Unknown 11/14/2024 9:32 AM EDT 11/14/2024 3:44 PM EDT Nithin Roberson MD LAB BLOOD ORDERABL ES Final Result Performing Organization Address [facility]/ZIP Co de Phone Number [facility] [address] [place] [phone] * (ABNORMAL) TSH W/Reflex to FT4 (11/14/2024 9:32 AM EDT) TSH reflex Free T4 0.28(L) 0.32 - 4.0 uIU/mL [facility] Blood Venous blood specimen / Unknown 11/14/2024 9:32 AM EDT 11/14/2024 3:44 PM EDT Nithin Roberson MD LAB BLOOD ORDERABL ES Final Result [facility] [address] [place] [phone] * T4, Free (11/14/2024 9:32 AM EDT) Free T4 (Free Thyroxine) 1.37 0.71 - 1.85 ng/dL [facility] 11/14/2024 9:32 AM EDT 11/14/2024 3:44 PM EDT us Nithin Roberson MD LAB BLOOD ORDERABL ES Final Result Performing Organization Address City/[facility]/ZIP Co de Phone Number [facility] [address] [place] [phone] * Lipid Panel, Standard (11/14/2024 9:32 AM EDT) Triglycerides 70 <150 mg/dL [facility] Comment:Desirable Triglyceri de: less than 150 mg/dLBorderline High Triglyceride 150-199 mg/dLHigh Triglyceride: 200-499 mg/dLVery High Triglyceride: greater than or equal to 5OO mg/dL Cholesterol 136 <200 mg/dL [facility] Comment:Desirable Cholestero l: less than 200 mg/dLBorderline High Cholesterol: 200-239 mg/dLHigh Cholesterol: greater than 239 mg/dL LDL Cholesterol Calculated 62 <100 mg/dL [facility] Comment:Desirable LDL: less than 100 mg/dLNear Optimal/Above Optimal LDL: 110- 129 mg/dLBorderline High LDL: 130-159 mg/dLHigh LDL: 160-189 mg/dLVery High LDL: greater than or equal to 190 mg/dL HDL Cholesterol 60 >40 mg/dL [facility] Comment:Desirable HDL: great er than 40 mg/dL Note: This HDL assay may give artificially low results in patients with liver disease. Blood Venous blood specimen / Unknown 11/14/2024 9:32 AM EDT 11/14/2024 3:44 PM EDT us Nithin Roberson MD LAB BLOOD ORDERABL ES Final Result Performing Organization Address City/[facility]/ZIP Co de Phone Number [facility] [address] [place] [phone] * (ABNORMAL) Comprehensive Metabolic Panel (11/14/2024 9:32 AM EDT) Sodium 139 135 - 145 mmol/L [facility] Potassium 4.4 3.3 - 5.1 mmol/L [facility] Chloride 105 96 - 108 mmol/L [facility] Carbon Dioxide 28 22 - 29 mmol/L [facility] Anion Gap 10(L) 12 - 20 [facility] Urea Nitrogen (BUN) 13 9 - 16 mg/dL [facility] Creatinine, Serum 0.59 0.5 - 1.4 mg/dL [facility] Estimated Glomerular Filt Rate >60 [facility] Comment:Chronic Kidney Disea se: Estimated GFR < 60 mL/min/1.45p6Pbdqym Kidney Disease: Estimated GFR < 15 mL/min/1.73m2 Glucose 94 60 - 115 mg/dL [facility] Calcium 9.2 8.4 - 10.2 mg/dL [facility] Bilirubin, Total 0.7 0.0 - 1.0 mg/dL [facility] Aspartate Amino Transferase 31 5 - 31 U/L [facility] Alanine Aminotransferase 22 0 - 31 U/L [facility] Total Protein 7.1 6.5 - 8.0 g/dL [facility] Albumin Level 4.2 3.5 - 5.0 g/dL [facility] Alkaline Phosphatase 53 39 - 117 U/L [facility] Blood Venous blood specimen / Unknown 11/14/2024 9:32 AM EDT 11/14/2024 3:44 PM EDT us Nithin Roberson MD LAB BLOOD ORDERABL ES Final Result Performing Organization Address City/[facility]/ZIP Co de Phone Number [facility] [address] [place] [phone] * HIV-1 RNA, Quantitative, Real-Time PCR with Reflex to Genotype (RTI, PI, Integrase) (09/16/2022 3:45 PM EDT) HIV 1 RNA, QN PCR NOT DETECTED copies/mL [facility] [employer] [facility], HIV 1 RNA, QN PCR NOT DETECTED Log copies/mL [facility]Life[facility], Comment: REFERENCE RANGE: NOT DETECTED copies/mL NOT DETECTED Log copies/mL This test was performed using Real-Time Polymerase Chain Reaction. Reportable range is 20 to 10,000,000 copies/mL (1.30-7.00 Log copies/mL). 09/16/2022 3:45 PM EDT 09/16/2022 3:45 PM EDT Narrative [facility] - 09/26/2022 2:29 PM EDT FASTING:YES FASTING: YES Nithin Roberson MD LAB BLOOD ORDERABL ES Final Result [facility] [address], [place] [address] [employer], [address] [place] [phone] * Mammography (02/06/2021) Mammogram performed Anatomical Region Laterality Modality Other Historical Provider HEALTH MAINTENANCE Final Result from Last 3 Months or Most Recently Relevant to Health Maintenance Insurance [facility] C3 Care Teams Loans Officer Relationship Specialty Start Date End Date Nithin Duckworth MD [address] [place] [phone] PCP - General Internal Medicine 09/10/19
--- OUTSIDE RECORDS SUMMARY | 2025-01-11 10:39 | XMS_ITS | Encounter Summary ---
Author Organization [employer] Address [address] [facility] 7t [place] [address] Care Team Providers Care Power Shovel Mechanic Name Role Phone Nithin Duckworth MD Primary Care Prov ider Encounter Details Date Type Department Care Team (Latest Contact Info) Description 11/18/2024 Results Follow-Up [facility] PEDS [address] [place], [place] [phone] Nithin Duckworth MD [address] [place] [address] CBC auto differential, Comprehensive Metabolic Panel, Lipid Panel, Standard, Additional followed-up results: 2 Social History Tobacco Use Types Packs/Day Years [...] documented as of this encounter Care Teams Power Shovel Mechanic Relationship Specialty Start Date End Date Nithin Duckworth MD [address] [place] [phone] PCP - General Internal Medicine 09/10/19 documented as of this encounter
--- OUTSIDE RECORDS SUMMARY | 2025-01-11 10:39 | XMS_ITS | Encounter Summary ---
Author Organization [employer] Address [address] [facility] 7t [place] [address] Care Team Providers Care Online Merchandising Manager Name Role Phone Nithin Duckworth MD Primary Care Prov ider Encounter Details Date Type Department Care Team ([facility] st Contact Info) Description 11/01/2023 Orders Only [facility] MED & PEDS [address] [place], [place] [phone] Nithin Duckworth MD [address] [place], [place] [phone] Acquired hypothyroidism (Primary Dx) Social History Tobacco Use Types Packs/Day Years Used Date Smoking Tobacco: Never Smokeless Tobacco: Never Alcohol Use Standard Drinks/Week Comments Never 0 (1 standard drink = 0.6 oz pur e alcohol) Depression Answer Date Recorded Patient Health Questionnaire-9 Score 16 07/18/2023 Patient Health Questionnaire-9 Score 16 07/18/2023 Last PHQ-9: Questionnaire Data Not on file 0 07/18/2023 Housing Stability Answer Date Recorded What is [...] Answer Date Recorded Patient Health Questionnaire-2 Score 5 07/18/2023 Comments Unknown Sex and Gender Information Value Date Recorded Sex Assigned at Female 03/07/2022 10:22 AM EDT Legal Sex Female 10:22 AM EDT Gender Identity Female 03/07/2022 10:22 AM EDT Sexual Orientation Straight 03/07/2022 10 :22 AM EDT documented as of this encounter Plan of Treatment Scheduled Orders Name Type Priority Associated Diagnoses Orde r Schedule TSH W/Reflex to FT4 Lab Routine Acquired hypothyroidism Expected: 11/01/2023 (Approximate), Expires: 10/31/2024 documented as of this encounter Visit Diagnoses Diagnosis Acquired hypothyroidism- Primary Unspecified hypothyroidism documented in this encounter Additional Health Concerns Assessment Noted Time PHQ-9 Depression Total Score: 16 024 9:16 AM EDT documented as of this encounter Care Teams Online Merchandising Manager Relationship Specialty Start Date End Date Nithin Duckworth MD [address] [place] [phone] PCP - General Internal Medicine 09/10/19 documented as of this encounter
--- OUTSIDE RECORDS SUMMARY | 2025-01-11 10:39 | XMS_ITS | Clinical Summary ---
Author Organization [facility] Address [address] [phone] Phone Care Team Providers Care Heavy Equipment Sales Manager Name Role Phone Nithin Suarez Primary Care Provider [phone] Social History Tobacco Use Types Packs/Day Years Used Date Smoking Tobacco: Never Assessed Comments Unknown Sex and Gender Information Value Date Recorded Sex Assigned at Not on file Legal Sex Female 4:29 PM EDT Gender Identity Not on file Sexual Orientation Not on file Plan of Treatment Upcoming Encounters Date Type Department Care Team (Late st Contact Info) Description 01/14/2025 9:15 AM EDT Office Visit [facility] [address] [phone] Ward Harley MD [address] [phone] Health Maintenance Due Date Last Done Comments Breast Cancer Screening 1962 Pneumococcal Vaccine: 50+ Years (1 of 2 - PCV) 982 Colorectal Cancer Screening: Annual FOBT 09/21/2011 Colorectal Cancer Screening: Colonoscopy 09/21/2011 Colorectal Cancer Screening: Sigmoidoscopy 09/21/2011 Hepatitis B Vaccine (1 of 3 - Risk 3-dose series) 09/05 Influenza Vaccine (#1) 2025 Insurance Medicaid [place] Care Teams Heavy Equipment Sales Manager Relationship Specialty Start Date End Date Nithin Suarez [address] [place] [phone] PCP - General Internal Medicine 11/14/24
--- OUTSIDE RECORDS SUMMARY | 2025-01-11 10:39 | XMS_ITS | Encounter Summary ---
Author Organization [employer] Address 75 [facility] 7t [place] [address] Care Team Providers Care Sexual Assault Counselor Name Role Phone Nithin Duckworth MD Primary Care Prov ider Reason for Visit * Reason Comments Med Refill Encounter Details Date Type Department Care Team ([facility] st Contact Info) Description 09/17/2023 Refill [facility] MED [facility] PEDS [address] [place], [place] [phone] Nithin Duckworth MD [address] [place] [address] Primary hypertension Social History Tobacco Use Types Packs/Day Years [...] of this encounter Visit Diagnoses Diagnosis Primary hypertension Unspecified essential hypertension documented in this encounter Additional Health Concerns Assessment Noted Time PHQ-9 Depression Total Score: 16 024 9:16 AM EDT documented as of this encounter Care Teams Sexual Assault Counselor Relationship Specialty Start Date End Date Nithin Duckworth MD [address] [place] [phone] PCP - General Internal Medicine 09/10/19 documented as of this encounter
--- OUTSIDE RECORDS SUMMARY | 2025-01-11 10:39 | XMS_ITS | Encounter Summary ---
Author Organization [employer] Address [address] [facility] 7t [place] [address] Care Team Providers Care Vice President Regulatory Name Role Phone Nithin Duckworth MD Primary Care Prov ider Encounter Details Date Type Department Care Team ([facility] st Contact Info) Description 11/15/2024 Orders Only [facility]S [address] [place], [place] [phone] Nithin Duckworth MD [address] [place] [address] Social History Tobacco Use Types Packs/Day Years [...] documented as of this encounter Care Teams Vice President Regulatory Relationship Specialty Start Date End Date Nithin Duckworth MD [address] [place] [phone] PCP - General Internal Medicine 09/10/19 documented as of this encounter
== END 2025-01-11 10:36 | disposition home or self-care (01) ==
LOC: HO.MAMMO 10:35
PROVIDERS: PCP Internal Medicine; Visit Provider Internal Medicine
DX: Z12.31 Encounter for screening mammogram for malignant neoplasm of breast (principal)
CPT/HCPCS: 77063; 77067

== ENCOUNTER 2025-03-26 10:44 | Outpatient (REF) | payer MEDICAID, SELFPAY ==
--- OUTSIDE RECORDS SUMMARY | 2025-03-26 09:45 | XMS_ITS | Encounter Summary ---
Author Organization [employer] Address [address] [facility] 7 [place] [address] Care Team Providers Care Advertising Sales Representative Name Role Phone Nithin Duckworth MD Primary Care Prov ider Reason for Referral * Imaging (Routine) - Authorized Specialty Diagnoses / Procedures Referred By Contac t Referred To Contact Radiology Diagnoses Acquired hypothyroidism Procedures US Thyroid Nithin Duckworth MD [address] [place] [address] Phone: tel: fax: [facility] [address] [place] [address], [address] [place] [address] Phone: tel: fax: Referral ID Status Reason Start Date Expiration Date V isits Requested Visits Authorized [id number] Authorized 03/26/2025 03/26/2026 1 1 Encounter Details Date Type Department Care Team (Latest Contact Info) Description 03/26/2025 9:45 AM EST Office Visit [facility] CHC MED & PEDS [address] [place], [place] [phone] Nithin Duckworth MD [address] [place], [place] [phone] Acquired hypothyroidism (Primary Dx); Primary hypertension; Swelling of lower extremity Social History Tobacco Use Types Packs/Day Years [...] housing situation today? I have christina pate 03/26/[address] you li ve. Do you have problems with any of the following? None of the above 03/26/2025 Food Insecurity Answer Date Recorded Within the past 12 months, y ou worried that your food would run out before you got money to buy more: Sometimes True 2024 Within the past 12 months,th e food you bought just didn't last and you didn't have enough money to get more: Sometimes True 03/26/2025 Transportation Answer Date Recorded In the past 12 months, has l ack of transportation kept you from medical appts, meetings, work or from getting things needed for daily living? No 03/26/2025 Utilities Answer Date Recorded In the past 12 months, has t he electric, gas, oil or water company threatened to shut off services in your home? No 03/26/2025 Depression Answer Date Recorded Patient Health Questionnaire-2 Score 0 11/14/2024 Internet Access Answer Date Recorded Internet Access Q1 Yes 03/26/2025 Internet Access Q2 Not on file 03/26/2025 Comments Unknown Sex and Gender Information Value Date Recorded Sex Assigned at Female 03/07/2022 10:22 AM EDT Legal Sex Female 10:22 AM EDT Gender Identity Female 03/07/2022 10:22 AM EDT Sexual Orientation Straight 03/07/2022 10 :22 AM EDT documented as of this encounter Last Filed Vital Signs Vital Sign Reading Time Taken Comments Blood Pressure 144/92 03/26/2025 10:13 AM EST Pulse 88 03/26/2025 10:13 AM EST Temperature 37 C (98.6 F) 03/26/2025 10:13 AM EST Respiratory Rate 16 03/26/2025 10:13 AM EST Oxygen Saturation - - Inhaled Oxygen Concentration - - Weight 101 kg (223 lb) 03/26/2025 10:13 AM EST Height 157.5 cm (5' 2 ) 03/26/2025 10:13 AM EST Body Mass Index 40.79 03/26/2025 10:13 AM EST documented in this encounter Progress Notes * Nithin Roberson MD - 03/26/2025 9:45 AM EST Subjective Patient ID: Tuyet Christie is a 64 y.o. female who presents for No chief complaint on file.. Hypertension This is a chronic problem. The problem is controlled. Pertinent negatives include no chest pain, headaches, palpitations or shortness of breath. Review of Systems Respiratory: Negative for shortness of breath. Cardiovascular: Negative for chest pain and palpitations. Neurological: Negative for headaches. Objective Physical Exam Cardiovascular: Rate and Rhythm: Normal rate. Heart sounds: No murmur heard. Pulmonary: Effort: Pulmonary effort is normal. No respiratory distress. Breath sounds: No stridor. Abdominal: General: Abdomen is flat. There is no distension. Palpations: There is no mass. Tenderness: There is no abdominal tenderness. Hernia: No hernia is present. Neurological: General: No focal deficit present. Mental Status: She is alert and oriented to person, place, and time. Psychiatric: Mood and Affect: Mood normal. Behavior: Behavior normal. Assessment/Plan Problem List Items Addressed This Visit Hypertension Controlled, keep low sodium diet and exercise as tolerated, keep blood pressure log, follow up in 3months Hypothyroidism - Primary Will order new tsh levels, based upon results, medication will be adjusted accordingly Relevant Orders TSH W/Reflex to FT4 US Thyroid Swelling of lower extremity Will send compression stocking 15-20 mmhg documented in this encounter Miscellaneous Notes * Assessment & Plan Note - Nithin Roberson MD - 03/26/2025 11:09 AM ESTAssociated Problem(s): Swelling of lower extremity Will send compression stocking 15-20 mmhg * Assessment & Plan Note - Nithin Roberson MD - 03/26/2025 11:01 AM ESTAssociated Problem(s): Hypothyroidism Will order new tsh levels, based upon results, medication will be adjusted accordingly * Assessment & Plan Note - Nithin Roberson MD - 03/26/2025 10:58 AM ESTAssociated Problem(s): Hypertension Controlled, keep low sodium diet and exercise as tolerated, keep blood pressure log, follow up in 3months documented in this encounter Plan of Treatment Scheduled Orders Name Type Priority Associated Diagnoses Orde r Schedule US Thyroid Imaging Routine Acquired hypothyroidism Expected: 03/26/2025, Expires: 03/26/2026 documented as of this encounter Procedures Procedure Name Priority Date/Time Associated Diagnosis Comments TSH W/REFLEX TO FT4 Routine 03/26/2025 10:46 AM EST Acquired hypothyroidism documented in this encounter Results * (ABNORMAL) TSH W/Reflex to FT4 (03/26/2025 10:46 AM EST) TSH reflex Free T4 0.11(L) 0.32 - 4.0 uIU/mL [facility] Blood Venous blood specimen / Unknown 03/26/2025 10:46 AM EST 03/26/2025 2:06 PM EST us Nithin Roberson MD LAB BLOOD ORDERABL ES Final Result Performing Organization Address City/State/[facility] Co de Phone Number [facility] [address] [place] [address] [phone] documented in this encounter Visit Diagnoses Diagnosis Acquired hypothyroidism- Primary Unspecified hypothyroidism Primary hypertension Unspecified essential hypertension Swelling of lower extremity documented in this encounter Additional Health Concerns Assessment Noted Time PHQ-9 Depression Total Score: 0 11/15/19 25 8:58 AM EDT documented as of this encounter Care Teams Advertising Sales Representative Relationship Specialty Start Date End Date Nithin Duckworth MD [address] [place] [phone] PCP - General Internal Medicine 09/10/19 documented as of this encounter
[2025-03-26 17:49] LABS: Free T4 (Free Thyroxine) 1.39 ng/dL (0.71-1.85)
--- OUTSIDE RECORDS SUMMARY | 2025-03-26 21:07 | XMS_ITS | Encounter Summary ---
Author Organization [employer] Address [address] [facility] 7 [place] [address] Care Team Providers Care Home Performance Laborer Name Role Phone Nithin Duckworth MD Primary Care Prov ider Reason for Visit * Reason Onset Date Comments chart prep 03/25/2025 Encounter Details Date Type Department Care Team ([facility] st Contact Info) Description 03/25/2025 Telephone [facility] CHC MED & PEDS [address] [place] [address] Nithin Duckworth MD [address] [place] [address] chart prep Social History Tobacco Use Types Packs/Day Years [...] AM EDT documented as of this encounter Miscellaneous Notes * Telephone Encounter - Marcela Grace MA - 03/25/2025 11:54 AM EST Chart Prep Labs: done Images: done Referrals: complete Vaccines due: Covid, Flu, PCV20, Tdap, Hep B, Hep A, RSV, and Zoster Screenings: colonoscopy Overdue care gaps: SBIRT, SDOH, and Disability screen documented in this encounter Plan of Treatment Not on file documented as of this encounter Visit Diagnoses Not on filedocumented in this encounter Additional Health Concerns Assessment Noted Time PHQ-9 Depression Total Score: 0 11/15/19 25 8:58 AM EDT documented as of this encounter Care Teams Home Performance Laborer Relationship Specialty Start Date End Date Nithin Duckworth MD [address] [place] [address] [place] [phone] PCP - General Internal Medicine 09/10/19 documented as of this encounter
--- OUTSIDE RECORDS SUMMARY | 2025-03-26 21:07 | XMS_ITS | Encounter Summary ---
Author Organization [employer] Address [address] [facility] [address] 7[address] [place] [address] Care Team Providers Care Service Crew Leader Name Role Phone Nithin Duckworth MD Primary Care Prov ider Encounter Details Date Type Department Care Team (Latest Contact Info) Description 03/26/2025 Travel Social History Tobacco Use Types Packs/Day Years [...] documented as of this encounter Care Teams Service Crew Leader Relationship Specialty Start Date End Date Nithin Duckworth MD [address] [place] [phone] PCP - General Internal Medicine 09/10/19 documented as of this encounter
--- OUTSIDE RECORDS SUMMARY | 2025-03-26 21:07 | XMS_ITS | Encounter Summary ---
Author Organization [employer] Address [address] [facility] 7t [place] [address] Care Team Providers Care College Teacher Name Role Phone Nithin Duckworth MD Primary Care Prov ider Encounter Details Date Type Department Care Team ([facility] st Contact Info) Description 11/01/2023 Orders Only [facility] CHC MED & PEDS [address] [place], [place] [phone] Nithin Duckworth MD [address] [place], [place] [phone] Acquired hypothyroidism (Primary Dx) Social History Tobacco [...] documented as of this encounter Care Teams College Teacher Relationship Specialty Start Date End Date Nithin Duckworth MD [address] [place] [phone] PCP - General Internal Medicine 09/10/19 documented as of this encounter
--- OUTSIDE RECORDS SUMMARY | 2025-03-26 21:07 | XMS_ITS | Encounter Summary ---
Author Organization [employer] Address [address] [facility] 7t [place] [address] Care Team Providers Care Profile Trimmer Name Role Phone Nithin Duckworth MD Primary Care Prov ider Encounter Details Date Type Department Care Team ([facility] st Contact Info) Description 11/15/2024 Orders Only [facility] CHC MED & PEDS [address] [place], [place] [phone] Nithin Duckworth MD [address] [place] [address] Social History Tobacco Use Types Packs/Day Years [...] documented as of this encounter Care Teams Profile Trimmer Relationship Specialty Start Date End Date Nithin Duckworth MD [address] [place] [phone] PCP - General Internal Medicine 09/10/19 documented as of this encounter
--- OUTSIDE RECORDS SUMMARY | 2025-03-26 21:07 | XMS_ITS | Clinical Summary ---
Author Organization [facility] Address [address] [phone] Phone Care Team Providers Care Litigator Name Role Phone Nithin Suarez Primary Care Provider [phone] Allergies No known active allergies Medications amLODIPine (NORVASC) 10 MG tablet Take 10 mg by mouth every morning 5 Active aspirin (ST VENTURA) 81 MG EC tablet Take 1 tablet by mouth in the morning. 1 Active chlorthalidone 25 MG tablet Take 25 mg by mouth every morning 5 Active cromolyn (OPTICROM) 4 % ophthalmic solution Administer 1 drop into affected eye(s) 8 Active Dextran 70-Hypromellose 0.1-0.3 % solution 1-2 drops twice a day as needed 1 Active Diclofenac Sodium 1 % gel Apply 2 g topically in the morning and 2 g in the evening. 5 Active ergocalciferol 1.25 MG (95176 UT) capsule Take 1 capsule by mouth once a week 2 Active levothyroxine (SYNTHROID, LEVOTHROID) 137 MCG tablet Take 137 mcg by mouth 1 (one) time each day before breakfast 5 Active Ketotifen Fumarate 0.035 % solution Administer 1 drop into affected eye(s) in the morning and 1 drop in the evening. 2 Active loratadine (CLARITIN) 10 MG tablet Take 1 tablet by mouth in the morning. 2 Active losartan (COZAAR) 100 MG tablet Take 100 mg by mouth in the morning. 5 11/15/19 26 Active Active Problems Problem Noted Date Diagnosed Date Osteoarthritis of multiple joints 04/18/2022 Cirrhosis of liver 11/01/2021 Seasonal allergic rhinitis 02/13/2017 Recurrent herpes simplex labialis 05/13/2016 Viral hepatitis C 05/03/2012 Impaired fasting glucose 05/03/2012 Hypothyroidism 05/03/2012 Hypertension 04/20/2012 Encounters Date Type Department Care Team Description 02/17/2025 11:00 AM EDT Office Visit [facility] [address] [place] [phone] Romulo Chen MD Hypertension (Primary Dx); Viral hepatitis C, not otherwise specified; Alcoholic cirrhosis of liver without ascites, not otherwise specified (HCC) from Last 3 Months Social History Tobacco Use Types Packs/Day Years Used Date Smoking Tobacco: Never Assessed Comments Unknown Sex and Gender Information Value Date Recorded Sex Assigned at Not on file Legal Sex Female 4:29 PM EDT Gender Identity Not on file Sexual Orientation Not on file Last Filed Vital Signs Vital Sign Reading Time Taken Comments Blood Pressure 132/70 02/17/2025 11:24 AM EDT Pulse - - Temperature - - Respiratory Rate - - Oxygen Saturation - - Inhaled Oxygen Concentration - - Weight 101 kg (223 lb) 02/17/2025 11:24 AM EDT Height - - Body Mass Index - - Plan of Treatment Upcoming Encounters Date Type Department Care Team (Late st Contact Info) Description 04/18/2025 10:30 AM EST Office Visit [facility] [address] [phone] Romulo Chen MD [address] [phone] Health Maintenance Due Date Last Done Comments Breast Cancer Screening 1960 Pneumococcal Vaccine: 50+ Years (1 of 2 - PCV) 982 Colorectal Cancer Screening: Annual FOBT 09/21/2011 Colorectal Cancer Screening: Colonoscopy 09/21/2011 Colorectal Cancer Screening: Sigmoidoscopy 09/21/2011 Hepatitis B Vaccine (1 of 3 - Risk 3-dose series) 09/05 Influenza Vaccine (#1) 2025 Procedures Procedure Name Priority Date/Time Associated Diagnosis Comments T4 FREE, DIRECT (HC) Routine 02/17/2025 12:30 PM EDT TSH W/REFLEX TO FT4 Routine 02/17/2025 1 2:30 PM EDT Hypertension Viral hepatitis C, not otherwise specified Alcoholic cirrhosis of liver without ascites, not otherwise specified (HCC) METANEPHRINES,FRACTI ONATED, PLASMA FREE Routine 02/17/2025 12:30 PM EDT Hypertension Viral hepatitis C, not otherwise specified Alcoholic cirrhosis of liver without ascites, not otherwise specified (HCC) ALDOSTERONE Routine 02/17/2025 12:30 PM EDT Hypertension Viral hepatitis C, not otherwise specified Alcoholic cirrhosis of liver without ascites, not otherwise specified (HCC) MAGNESIUM Routine 02/17/2025 12:30 PM EDT Hypertension Viral hepatitis C, not otherwise specified Alcoholic cirrhosis of liver without ascites, not otherwise specified (HCC) RENAL FUNCTION PANEL Routine 02/17/2025 12:30 PM EDT Hypertension Viral hepatitis C, not otherwise specified Alcoholic cirrhosis of liver without ascites, not otherwise specified (HCC) from Last 3 Months Results * (ABNORMAL) T4 Free, Direct (02/17/2025 12:30 PM EDT) Free T4 1.95(H) 0.82 - 1.77 ng/dL [facility] Comment: A low TSH with an elevated FT4 would be consistent with Hyperthyroid- ism in the appropriate clinical setting. 02/17/2025 12:3 0 PM EDT 02/17/2025 us Romulo Chen MD LAB [id number] LICITED RESULTS Final Result [facility] [place] [address] [place] [phone] * Metanephrines,Fractionated, Plasma Free (02/17/2025 12:30 PM EDT) [facility] Normetanephrin e, Pl 70.0 0.0 - 285.2 pg/mL [facility] Metanephrine, Plasma <25.0 0.0 - 88.0 pg/mL [facility] Blood Venous blood / Unknown 02/17/2025 12:30 PM EDT 02/17/2025 Narrative [facility] - 02/23/2025 12:05 PM EDT Test(s) 005125-[id number], Pl; [id number]-[id number], Pl was developed and its performance characteristics determined by [facility]. It has not been cleared or approved by the Food and Drug Administration. Romulo Chen MD LAB BLOOD ORDERABLES Final Resu Performing Organization Address [facility] Co de Phone Number [facility] [address] [place] [address] * Aldosterone (02/17/2025 12:30 PM EDT) [facility] Aldosterone 8.2 0.0 - 30.0 ng/dL [facility] Blood Venous blood / Unknown 02/17/2025 12:30 PM EDT 02/17/2025 Narrative [facility] - 02/23/2025 12:05 PM EDT Test(s) [id number] was developed and its performance characteristics determined by [facility]. It has not been cleared or approved by the Food and Drug Administration. Romulo Chen MD LAB BLOOD ORDERABLES Final Resu Performing Organization Address City/[facility] de Phone Number [facility] [address] [place] [address] * (ABNORMAL) TSH w/reflex to FT4 (02/17/2025 12:30 PM EDT) [facility] TSH 0.141(L) 0.450 - 4.500 uIU/mL [facility] Blood Venous blood / Unknown 02/17/2025 12:30 PM EDT 02/17/2025 us Romulo Chen MD LAB BLOOD ORDERABLES Final Resu lt [facility] [address] [place] [address] * Magnesium (02/17/2025 12:30 PM EDT) [facility] Magnesium 2.0 1.6 - 2.3 mg/dL [facility] Blood Venous blood / Unknown 02/17/2025 12:30 PM EDT 02/17/2025 Romulo Chen MD LAB BLOOD ORDERABLES Final Resu lt Performing Organization Address City/[facility] Co de Phone Number [facility] [address] [place] [address] * (ABNORMAL) Renal function panel (02/17/2025 12:30 PM EDT) [facility] Glucose 92 70 - 99 mg/dL [facility] BUN 16 8 - 27 mg/dL [facility] Creatinine 0.51(L) 0.57 - 1.00 mg/dL [facility] eGFR CKD-EPI CR 2020 105 >59 mL/min/1.7 3 [facility] BUN/Creatinine Ratio 31(H) 12 - 28 [facility] Sodium 139 134 - 144 mmol/L [facility] Potassium 4.3 3.5 - 5.2 mmol/L [facility] Chloride 102 96 - 106 mmol/L [facility] Bicarbonate (CO2) 25 20 - 29 mmol/L [facility] Calcium 9.5 8.7 - 10.3 mg/dL [facility] Albumin 4.4 3.9 - 4.9 g/dL [facility] Phosphorus 2.8(L) 3.0 - 4.3 mg/dL [facility] Blood Venous blood / Unknown 02/17/2025 12:30 PM EDT 02/17/2025 us Romulo Chen MD LAB BLOOD ORDERABLES Final Resu lt [facility] [address] [place] [address] from Last 3 Months Insurance Medicaid [place] Care Teams Litigator Relationship Specialty Start Date End Date Nithin Suarez [address] [place] [phone] PCP - General Internal Medicine 11/14/24
--- OUTSIDE RECORDS SUMMARY | 2025-03-26 21:07 | XMS_ITS | Clinical Summary ---
Author Organization [employer] Address [address] [facility] 7t [place] [address] Care Team Providers Care School Bus Driver/Custodian Name Role Phone Nithin Duckworth MD Primary Care Prov ider Allergies Active Allergy Reactions Criticality Noted Date Comments Iodine High 04/20/2012 Other reaction(s): panic attack Medications aspirin 81 MG EC tablet Take 1 tablet by mouth at bed time. 03/08/20 21 Active cromolyn (Opticrom) 4 % ophthalmic solution Administer 1 drop into affected eye(s). 07/29/19 18 Active dextran 70-hypromellose (artificial tears) 0.1-0.3 % ophthalmic solution 1-2 drops twice a day as needed 06/16/19 21 Active ergocalciferol (Vitamin D-2) 1.25 MG (85942 UT) capsule Take 1 capsule by mouth once a week. 11/02/19 22 Active ketotifen (Zaditor) 0.025 % ophthalmic solution Administer 1 drop into affected eye(s) every 12 (twelve) hours. 11/02/19 22 Active loratadine (Claritin) 10 MG tablet Take 1 tablet by mouth at bed time. 10/19/19 22 Active mirtazapine (Remeron) 30 MG tablet Take 30 mg by mouth. 07/29/19 18 Active Na Sulfate-K Sulfate-Mg Sulf 17.5-3.13-1.6 GM/177ML solution Take 177 mL by mouth. 12/13/19 19 Active chlorthalidone (Hygroton) 25 MG tablet Take 1 tablet (25 mg) by mouth in the morning. 90 tablet 3 11/15/19 25 Active losartan (Cozaar) 100 MG tabletIndication s:Primary hypertension Take 1 tablet (100 mg) by mouth Once per day. 90 tablet 3 11/15/19 25 026 Active amLODIPine (Norvasc) 10 MG tablet Take 1 tablet (10 mg) by mouth in the morning. 90 tablet 3 11/15/19 25 Active traZODone (Desyrel) 50 MG tablet Take 1 tablet (50 mg) by mouth at bedtime. 90 tablet 3 11/15/19 25 Active Diclofenac Sodium (Voltaren Arthritis Pain) 1 % gel Apply 2 g topically 2 times daily. 350 g 3 11/15/19 25 Active levothyroxine (Synthroid, Levoxyl) 137 MCG tablet TAKE 1 TABLET BY MOUTH EVERY DAY BEFORE BREAKFAST 90 tablet 03/06/20 25 Active levothyroxine (Synthroid, Levoxyl) 137 MCG tablet TAKE 1 TABLET BY MOUTH EVERY DAY BEFORE BREAKFAST 90 tablet 11/16/19 25 025 Discontinued Active Problems Problem Noted Date Diagnosed Date Swelling of lower extremity 03/26/2025 Assessment & Plan (03/26/2025 11:09 AM EST): Will send compression stocking 15-20 mmhg Screening for colon cancer 07/18/2023 Assessment & [...] of multiple joints 04/18/2022 Cirrhosis of liver (CMS/HCC) 11/01/2021 Assessment & Plan (09/07/2022 11:47 AM EDT): Told to follow up with Gi, currently asymptomatic Mood disorder 02/13/2017 Seasonal allergic rhinitis 02/13/2017 Vasculitis 02/13/2017 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 Hepatitis C 05/03/2012 Hypothyroidism 05/03/2012 Assessment & Plan (03/26/2025 11:01 AM EST): Will order new tsh levels, based upon results, medication will be adjusted accordingly Assessment & Plan (11/14/2024 9:29 AM EDT): [...] glucose 05/03/2012 Hypertension 04/20/2012 Assessment & Plan (03/26/2025 10:58 AM EST): Controlled, keep low sodium diet and exercise as tolerated, keep blood pressure log, follow up in 3 months Assessment & Plan (11/14/2024 9:29 AM EDT): [...] Encounters Date Type Department Care Team Description 03/26/2025 9:45 AM EST Office Visit [facility] [address] [place] [address] Nithin Duckworth MD Acquired hypothyroidism (Primary Dx); Primary hypertension; Swelling of lower extremity 03/26/2025 Orders Only [facility] [address] [place] [address] Nithin Duckworth MD 03/26/2025 Travel 03/25/2025 Telephone [facility] [address] [place] [address] Nithin Duckworth MD chart prep 03/05/2025 Refill [facility] [address] [place], [place] [phone] Nithin Duckworth MD from Last 3 Months [...] Mass Index 40.79 03/26/2025 10:13 AM EST Plan of Treatment Health Maintenance Due Date Last Done Comments CT Colonography 1960 Colonoscopy 1960 Colorectal Cancer Screening 1960 FIT DNA/Cologuard 1962 FIT 1960 FOBT 1960 Sigmoidoscopy 1962 DTaP/Tdap/Td Vaccines (1 - Tdap) 1981 Hepatitis A Vaccines (1 of 2 - Risk 2-dose series) 1981 Pneumococcal Vaccine: 50+ Years (1 of 1 - PCV) 2012 RSV Patients and Patients Aged 60 years or older (1 - Risk 50-74 years 1-dose series) 2012 Zoster Vaccines (1 of 2) 2012 Hepatitis B Vaccines (1 of 3 - Risk 3-dose series) 2022 Tobacco Screening 11/15/2024 11/16/2023 COVID-19 Vaccine ( - season) 2025 Influenza Vaccine (#1) 2025 Depression Screening 11/14/2025 11/14/2024, 11/15/19 25 Cervical Cancer Screening 02/12/2026 HPV/Cotest 02/12/2026 02/12/2021 Pap Smear 02/12/2026 02/12/2021 Alcohol/Substance Use Screening 03/26/2026 03/26/2025 Disability Screening 03/26/2026 03/26/2025 SDOH Screening 03/26/2026 03/26/2025 Mammogram 01/11/2027 01/11/2025, 06/2020, 02/06/2021 Lipid Panel 11/14/2029 11/14/2024, 02/05, 07/18/2023, Additional [...] Procedure Name Priority Date/Time Associated Diagnosis Comments T4, FREE Routine 03/26/2025 10:46 AM EST TSH W/REFLEX TO FT4 Routine 03/26/2025 1 0:46 AM EST Acquired hypothyroidism BI MAMMOGRAM SCREENING TOMOSYNTHESIS BILATERAL Routine 01/11/2025 10:39 AM EDT Encounter for screening mammogram for malignant neoplasm of breast LIPID PANEL, STANDARD Routine 11/14/2024 9:32 AM EDT Primary hypertension HIV 1 RNA, QN PCR W/RFL TRICIA (RTI,PI,INTEGRASE) Routine 09/16/2022 3:45 PM EDT Primary hypertension Other cirrhosis of liver (CMS/HCC) Acquired hypothyroidism HM PAP/HPV Routine 02/12/2021 from Last 3 Months or Most Recently Relevant to Health Maintenance Results * (ABNORMAL) TSH W/Reflex to FT4 (03/26/2025 10:46 AM EST) TSH reflex Free T4 0.11(L) 0.32 - 4.0 uIU/mL [facility] Blood Venous blood specimen / Unknown 03/26/2025 10:46 AM EST 03/26/2025 2:06 PM EST us Nithin Roberson MD LAB BLOOD ORDERABL ES Final Result [facility] [address] [place] [phone] * T4, Free (03/26/2025 10:46 AM EST) Free T4 (Free Thyroxine) 1.39 0.71 - 1.85 ng/dL [facility] 03/26/2025 10:4 6 AM EST 03/26/2025 2:06 PM EST us Nithin Roberson MD LAB BLOOD ORDERABL ES Final Result [facility] [address] [place] [phone] * BI Mammogram Screening Tomosynthesis Bilateral (01/11/2025 10:39 AM EDT) Anatomical Region Laterality Modality Breast Bilateral Mammography 01/11/2025 10:3 9 AM EDT Narrative 01/14/2025 4:43 PM EDT [facility] [address] [place] [address] Mammography Report Signed Patient: Tuyet Christie MR#: [id number] : 1960 Acct:[id number] Age/Sex: 64 / F ADM Date: 01/11/25 Loc: HO.MAMMO Attending Dr: Nithin Roberson MD Ordering Physician: Nithin Duckworth MD Res ults: 1Negative Date of Service: 01/11/25 Follow Up: 1 Year From Orig ina Mammogram Procedure(s): MM tomosynthesis screening BI Accession Number(s): [id number] cc: Nithin Duckworth MD EXAMINATION: MM SCREENING DIGITAL BREAST TOMOSYNTHESIS, BILATERAL CLINICAL INFORMATION: Screening. Asymptomatic. COMPARISON: Mammography: Comparison is made with available priors TECHNIQUE: Digital breast mammography with tomosynthesis is performed in both the craniocaudal and mediolateral oblique views along with computer-aided detection (CAD). FINDINGS: There are scattered areas of fibroglandular density (ACR BI-RADS breast composition Category b). There are no significant masses, abnormal calcifications, or other abnormalities. MM/MM tomosynthesis screening BI IMPRESSION: No mammographic evidence of malignancy. ASSESSMENT: BI-RADS BI-RADS 1 - Negative RECOMMENDATION: Routine annual mammography screening. 1 year F/U This examination should not preclude the clinical evaluation of a suspicious palpable abnormality. This patient's information was entered into a reminder system with a target due date for their next mammogram. Electronically signed by: Kia Bailey DO 01/14/2025 04:40 PM EDT Dictated By: Kia Bailey DO Signed By: <Electronically signed by Kia Bailey DO in OV> 01/14/25 1640 DD/ 1039 TD/TT: 01/11/25 1050 Cake Wringer: Procedure Note Donotuseinterpreter, Image - 01/14/2025 [facility] [address] [place] [address] Mammography Report Signed Patient: Lacey Christie#: [id number] : 1960Acct:[id number] Age/Sex: 64 / FADM Date: 01/11/25 Loc: HO.MAMMO Attending Dr: Nithin Roberson MD Ordering Physician: Nithin Duckworth ults: 1Negative Date of Service: 01/11/25Follow Up: 1 Year From Orig inal Mammogram Procedure(s): MM tomosynthesis screening BI Accession Number(s): [id number] cc: Nithin Duckworth MD EXAMINATION: MM SCREENING DIGITAL BREAST TOMOSYNTHESIS, BILATERAL CLINICAL INFORMATION: Screening. Asymptomatic. COMPARISON: Mammography: Comparison is made with available priors TECHNIQUE: Digital breast mammography with tomosynthesis is performed in both the craniocaudal and mediolateral oblique views along with computer-aided detection (CAD). FINDINGS: There are scattered areas of fibroglandular density (ACR BI-RADS breast composition Category b). There are no significant masses, abnormal calcifications, or other abnormalities. MM/MM tomosynthesis screening BI IMPRESSION: No mammographic evidence of malignancy. ASSESSMENT: BI-RADS BI-RADS 1 - Negative RECOMMENDATION: Routine annual mammography screening. 1 year F/U This examination should not preclude the clinical evaluation of a suspicious palpable abnormality. This patient's information was entered into a reminder system with a target due date for their next mammogram. Electronically signed by: Kia Bailey DO 01/14/2025 04:40 PM EDT RP Dictated By: Kia Bailey DO Signed By: <Electronically signed by Kia Bailey DO in OV> 01/14/25 1640 DD/ 1039 TD/TT: 01/11/25 1050 Cake Wringer: us Nithin Roberson MD IMG BI PROCEDURES Final Result * Lipid Panel, Standard (11/14/2024 9:32 AM EDT) Triglycerides 70 <150 mg/dL [facility] Comment:Desirable Triglyceri de: less than 150 mg/dLBorderline High Triglyceride 150-199 mg/dLHigh Triglyceride: 200-499 mg/dLVery High Triglyceride: greater than or equal to 5OO mg/dL Cholesterol 136 <200 mg/dL [facility] Comment:Desirable Cholestero l: less than 200 mg/dLBorderline High Cholesterol: 200-239 mg/dLHigh Cholesterol: greater than 239 mg/dL LDL Cholesterol Calculated 62 <100 mg/dL [facility] Comment:Desirable LDL: less than 100 mg/dLNear Optimal/Above Optimal LDL: 110- 129 mg/dLBorderline High LDL: 130-159 mg/dLHigh LDL: 160-189 mg/dLVery High LDL: greater than or equal to 190 mg/dL HDL Cholesterol 60 >40 mg/dL [facility] Comment:Desirable HDL: great er than 40 mg/dL Note: This HDL assay may give artificially low results in patients with liver disease. Blood Venous blood specimen / Unknown 11/14/2024 9:32 AM EDT 11/14/2024 3:44 PM EDT us Nithin Roberson MD LAB BLOOD ORDERABL ES Final Result [facility] [address] [place] [phone] * HIV-1 RNA, Quantitative, Real-Time PCR with Reflex to Genotype (RTI, PI, Integrase) (09/16/2022 3:45 PM EDT) HIV 1 RNA, QN PCR NOT DETECTED copies/mL [facility], HIV 1 RNA, QN PCR NOT DETECTED Log copies/mL [facility], Comment: REFERENCE RANGE: NOT DETECTED copies/mL NOT DETECTED Log copies/mL This test was performed using Real-Time Polymerase Chain Reaction. Reportable range is 20 to 10,000,000 copies/mL (1.30-7.00 Log copies/mL). 09/16/2022 3:45 PM EDT 09/16/2022 3:45 PM EDT Narrative [facility] - 09/26/2022 2:29 PM EDT FASTING:YES FASTING: YES Nithin Roberson MD LAB BLOOD ORDERABL ES Final Result Performing Organization Address [facility] Co de Phone Number [facility] [address], [place] [address] [email or web address], [address] [place] [address] * PAP/HPV (02/12/2021) Pap Smear 1. NILM 1. NILM HPV Not Detected Undetected, Indeterminat e, Quantitative , Not Detected Sravanthi Provider HEALTH MAINTENANCE Final Result from Last 3 Months or Most Recently Relevant to Health Maintenance Insurance [facility] C3 Care Teams School Bus Driver/Custodian Relationship Specialty Start Date End Date Nithin Duckworth MD [address] [place] [phone] PCP - General Internal Medicine 09/10/19
--- OUTSIDE RECORDS SUMMARY | 2025-03-26 21:07 | XMS_ITS | Encounter Summary ---
Author Organization [employer] Address [address] [facility] 7t [place] [address] Care Team Providers Care Smoking Pipe Liner Name Role Phone Nithin Duckworth MD Primary Care Prov ider Reason for Visit * Reason Comments Med Refill Encounter Details Date Type Department Care Team ([facility] st Contact Info) Description 09/17/2023 Refill [facility] [address] [place], [place] [phone] Nithin Duckworth MD [address] [place] [address] Primary hypertension Social History Tobacco Use Types [...] documented as of this encounter Care Teams Smoking Pipe Liner Relationship Specialty Start Date End Date Nithin Duckworth MD [address] [place] [phone] PCP - General Internal Medicine 09/10/19 documented as of this encounter
--- OUTSIDE RECORDS SUMMARY | 2025-03-26 21:07 | XMS_ITS | Encounter Summary ---
Author Organization [employer] Address [address] [facility] [address] [place] [address] Care Team Providers Care Roller Painter Name Role Phone Nithin Duckworth MD Primary Care Prov ider Encounter Details Date Type Department Care Team (Late st Contact Info) Description 06/01/2022 Orders Only [facility] [address] [place] [address] Nithin Duckworth MD [address] [place], [place] [phone] Primary hypertension (Primary Dx) Social History Tobacco [...] documented as of this encounter Care Teams Roller Painter Relationship Specialty Start Date End Date Nithin Duckworth MD [address] [place] [phone] PCP - General Internal Medicine 09/10/19 documented as of this encounter
--- OUTSIDE RECORDS SUMMARY | 2025-03-26 21:07 | XMS_ITS | Encounter Summary ---
Author Organization [employer] Address [address] [facility] [address] [place] [address] Care Team Providers Care Bicycle Rental Clerk Name Role Phone Nithin Duckworth MD Primary Care Prov ider Encounter Details Date Type Department Care Team ([facility] st Contact Info) Description 03/26/2025 Orders Only [facility] [address] [place], [place] [phone] Nithin Duckworth MD [address] [place] [phone] Social History Tobacco Use Types Packs/Day Years [...] on file documented as of this encounter Procedures Procedure Name Priority Date/Time Associated Diagnosis Comments T4, FREE Routine 03/26/2025 10:46 AM EST documented in this encounter Results * T4, Free (03/26/2025 10:46 AM EST) Free T4 (Free Thyroxine) 1.39 0.71 - 1.85 ng/dL [facility] 03/26/2025 10:4 6 AM EST 03/26/2025 2:06 PM EST us Nithin Roberson MD LAB BLOOD ORDERABL ES Final Result [facility] [address] [place] [phone] documented in this encounter Visit Diagnoses Not on filedocumented in this encounter Additional Health Concerns Assessment Noted Time PHQ-9 Depression Total Score: 0 11/15/19 25 8:58 AM EDT documented as of this encounter Care Teams Bicycle Rental Clerk Relationship Specialty Start Date End Date Nithin Duckworth MD [address] [place] [phone] PCP - General Internal Medicine 09/10/19 documented as of this encounter
== END 2025-03-26 10:45 | disposition home or self-care (01) ==
LOC: HO.CHCLDS 10:44
PROVIDERS: Visit Provider Internal Medicine
DX: E03.9 Hypothyroidism, unspecified (principal)
CPT/HCPCS: 36415; 84439; 84443